=== PATIENT | female | born 1985 | race Caucasian/White ===

== ENCOUNTER 2017-01-16 17:57 | Emergency (ER) | payer OTHER ==
[~2017-01-16 17:57] MED LIST: Z.0.NO CURRENT MEDS
[2017-01-16 18:34] VITALS: BP 122/60; PULSE 68; RESP 16; TEMP 97.6; O2SAT 98
--- NOTE | 2017-01-16 19:33 | PD ---
HPI Chief Complaint: Psychiatric Symptoms Time Seen by Provider: 19:28 Travel History International Travel<30 days: No Contact w/Intl Traveler<30days: No Traveled to known affect area: No History of Present Illness HPI 31-year-old female that presents to the ED for evaluation of psychiatric illness. patient was Wilson acted by police and was seen at this hospital where she was worked up for medically clear and sent here for evaluation of psych. Patient apparently suicidal has a history of bipolar and depression as well as anxiety and substance abuse. She states that she is suicidal. No homicidal ideation. States having recent substance abuse. No other medical complaints. Unclear if she takes any medications. No allergies to medication. Patient already had blood work and medical clearance done at a different facility. [facility] Past Medical History Diminished Hearing: No Immunizations Current: Yes ?: Not Menopausal: No : 3 Para: 2 : 1 Social History Alcohol Use: Yes (OCCASSIONAL USE) Tobacco Use: Yes (1 PPD) Substance Use: Yes (POT, METH, COCAINE) Allergies-Medications (Allergen,Severity, Reaction): Coded Allergies: No Known Allergies (Verified , 08/14/09) Reported Meds & Prescriptions Reported Meds & Active Scripts Active Reported No Current Meds (Miscellaneous Medication) Misc Review of Systems Except as stated in HPI: all other systems reviewed are Neg Physical Exam Narrative GENERAL: SKIN: Warm and dry. HEAD: Atraumatic. Normocephalic. EYES: Pupils equal and round. No scleral icterus. No injection or drainage. ENT: No nasal bleeding or discharge. Mucous membranes pink and moist. Tongue is midline. No uvula deviation. NECK: Trachea midline. No JVD. CARDIOVASCULAR: Regular rate and rhythm. No murmurs, S3, S4. RESPIRATORY: No accessory muscle use. Clear to auscultation. Breath sounds equal bilaterally. GASTROINTESTINAL: Abdomen soft, non-tender, nondistended. Hepatic and splenic margins not palpable. MUSCULOSKELETAL: Extremities without clubbing, cyanosis, or edema. No obvious deformities. Full range of motion of the upper and lower extremities bilaterally. 2+ pulses bilaterally. NEUROLOGICAL: Awake and alert. No obvious cranial nerve deficits. Motor grossly within normal limits. Five out of 5 muscle strength in the arms and legs. Normal speech. PSYCHIATRIC: Appropriate mood and affect; insight and judgment normal. Data Data Last Documented VS Vital Signs Date Time Temp Pulse Resp B/P Pulse Ox O2 Delivery O2 Flow Rate FiO2 01/16/17 18:34 97.6 68 16 122/60 98 Orders Diet Regular Basic (01/16/17 Dinner) Complete Blood Count With Diff (01/16/17 18:58) Comprehensive Metabolic Panel (01/16/17 18:58) Ed Urine Pregnancytest Poc (01/16/17 18:58) Psych Screen (01/16/17 18:58) Drug Screen, Random Urine (01/16/17 18:58) Alcohol (Ethanol) (01/16/17 18:58) MDM Medical Decision Making Medical Screen Exam Complete: Yes Emergency Medical Condition: Yes Medical Record Reviewed: Yes Differential Diagnosis Depression versus suicidal ideation versus anxiety versus adjustment disorder versus mood disorder versus bipolar disorder versus schizophrenia versus paranoid disorder versus psychosis versus substance abuse versus alcohol abuse versus alcohol induced psychosis versus homicidality addition versus cutting versus personality disorder Narrative Course 31-year-old female that presents to the ED for evaluation of psych. Patient was properly examined and was cleared and had labs at a different facility. I was asked to medically clear her. Patient is medically clear. Okay to be seen by psych. Diagnosis Primary Impression: Bipolar disorder Qualified Code: F31.62 - Bipolar disorder, current episode mixed, moderate Phil Light January 16, 2017 19:33
[2017-01-16] MEDS ORDERED: diphenhydrAMINE HCL 50 MG CAP PO PRN (20:00)
[2017-01-16] MEDS ORDERED: OLANZapine 5 MG TAB PO ONE ×2 (20:00→21:15)
[2017-01-16] MEDS ORDERED: OLANZapine IM 10 MG VIAL IM ONE (21:45)
[2017-01-16] MEDS ORDERED: LORazepam 2 MG/ML VIAL IM ONE (21:45)
[2017-01-16 22:32] VITALS: RESP 18
[2017-01-17 02:21] VITALS: BP 115/78; PULSE 88; RESP 17; O2SAT 98
[2017-01-17 06:36] VITALS: BP 121/85; PULSE 70; RESP 18; O2SAT 96
[2017-01-17 10:35] VITALS: BP 116/75; PULSE 91; RESP 18
[2017-01-17] MEDS ORDERED: NICOTINE 21 MG/24 HR PATCH T-DERMAL ONE (16:15)
--- NOTE | 2017-01-17 18:30 | MB ---
cc: WES ANDERSON MD DATE OF CONSULTATION 01/17/17 REFERRING PHYSICIAN Emergency department REASON FOR CONSULTATION Wilson Act HISTORY OF PRESENT ILLNESS Ms. Monk is a 31-year-old female with reported history of bipolar illness and anxiety who presents in transfer from [facility] under a Wilson Act alleging that the patient recently smoked meth and was feeling depressed and did not want to live anymore. Documentation from [facility] reviewed. Reviewing our own electronic medical record, I see no prior psychiatric consultations or admissions within our system. The patient seen and examined. Chart reviewed. The patient was apparently somewhat paranoid and agitated on arrival and was medicated with Zyprexa IM and p.o. Case discussed with nursing staff who has obtained collateral from the patient's mother, which I have reviewed with the nurse. There has been no evidence of any suicidality or homicidality while under observation in the J pod. On my examination today, the patient is calm and cooperative. She says that she is feeling much better now. She denies any suicidal or homicidal ideation, intent or plan on direct questioning. She reports that her mood is stable and I can elicit no depressive or hypomanic/manic symptoms. She denies any audiovisual hallucinations. She articulates a belief that the staff overnight was trying to kill her and highlights the episode in which she was given Zyprexa IM, but she is not generating new delusional material. The remainder of the psychiatric ROS is negative. The patient is requesting discharge from the psychiatric emergency room this afternoon. PAST PSYCHIATRIC HISTORY The patient reports a history of bipolar illness and anxiety. She has not seen a psychiatrist in several years. She reports that she was hospitalized about seven years ago at [facility]. She denies a history of suicide attempts. FAMILY HISTORY The patient reports that her mother struggles with anxiety. She denies any family history of suicide. CHEMICAL DEPENDENCY HISTORY The patient reports use of methamphetamine and crack cocaine. She also used a half a Xanax bar yesterday. SOCIAL HISTORY The patient reports that she lives with her mother. She is single. She has three children who live with their father. She has a GED. She is not presently working. She denies any or legal history. Denies any access to guns or firearms. PAST MEDICAL HISTORY No reported medical issues. REVIEW OF SYSTEMS No reported headache, vision or hearing changes, chest pain, shortness of breath, bowel or bladder issues. No other physical complaints. PHYSICAL EXAMINATION Temperature 97.6, pulse 91, respirations 18, blood pressure 116/75, pulse oximetry 96% on room air. Physical examination completed by the ED provider. On my examination today, the patient appears to be in no acute physical distress. She is well-nourished and well-developed. No abnormal motor movements noted. No signs of withdrawal noted. LABORATORIES REVIEWED Urinalysis reveals nine white blood cells and 3+ leukocyte esterase. CBC is unremarkable. CMP is significant for mild alkaline phosphatase elevation and low potassium at 2.7. Urine toxicology results are not available in the transfer paperwork for my review. MENTAL STATUS EXAM The patient is in hospital gown. She is well-groomed. She is maintaining basic hygiene. She is awake and alert and oriented x3. No evidence of delirium. No abnormal motor movements noted. Speech is within normal limits for rate, tone and volume. Language and fund of knowledge seem average. Mood is fair and affect is blunted. Thought process linear. No loosening of associations. No new delusional material, although the patient does claim to the delusion that the staff was trying to kill her last night. This seems fairly loculated and does not spread to other aspects of her presentation. Denies audiovisual hallucinations and does not appear internally stimulated. Denies suicidal or homicidal ideation, intent or plan. Insight and judgment are fair at best. ASSESSMENT/PLAN Polysubstance abuse with drug-induced psychotic disorder, psychosis resolving, F19.150 This is a 31-year-old female with psychiatric history as detailed above who presents under Wilson Act in transfer from outside hospital. The patient reports recent use of methamphetamine, cocaine and benzodiazepine. She apparently presented in a psychotic state, but this is now resolving or resolved. I suspect this psychosis was drug-induced. There is no evidence of any unstable mood, anxiety or psychotic disorder in this patient at this time otherwise. She is denying suicidal or homicidal ideation. She appears to be attending to her basic needs. 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 I have offered the patient voluntary psychiatric hospitalization for observation but she has declined. She is willing to accept an outpatient psychiatric referral and we will provide one to her. I have counseled the patient to abstain from substances of abuse. I have counseled the patient regarding warning signs for need to return to the psychiatric emergency room as part of a general safety plan. The patient is otherwise psychiatrically clear for discharge from the ED. Thank you very much for this consultation. Wes ROSE /5:54 PM /6:07 PM JUAN DIEGO
[2017-01-17 18:45] VITALS: BP 123/79; PULSE 90
== END 2017-01-17 19:10 | disposition home or self-care (01) ==
LOC: NEPJ 17:57
DX: F31.62 Bipolar disorder, current episode mixed, moderate (principal); F19.150 Other psychoactive substance abuse with psychoactive substance-induced psychotic disorder with delusions
CPT/HCPCS: 96372; 99283; J2060; Q0163